=== PATIENT | female | born 1960 | race Caucasian/White ===

== ENCOUNTER → 2016-09-03 | Day surgery (SDC) | payer OTHER ==
[~2016-09-03] MED LIST: CALCIUM + D SO1 EACH PO; DILANTIN PO; GNP ONE DAILY1 EAC4 PO; HAIR, SKIN & N1 EACH PO; VIT E PO; XYZAL5 MG PO
--- NOTE | ~2016-09-03 | OR ---
Unit #: [id number] #: [id number] Patient: PONCE REGAN [id number] [address] [place], [place] [address] [id number] MR#: [id number] NAME: PONCE REGAN ROOM: Date of Procedure: 09/03/2016 Admission Date: 09/03/2016 Surgeon: Abner Mcdonnell M.D. : 1960 Attending Physician: Abner Mcdonnell M.D. Primary Care Physician: Connor Newsome M.D. OPERATIVE REPORT PREOPERATIVE DIAGNOSIS Colorectal cancer screening in an average-risk patient. PROCEDURE PERFORMED Colonoscopy up to cecum and terminal ileum with excellent preparation and good visualization. POSTOPERATIVE DIAGNOSES Small internal hemorrhoids. Otherwise, normal examination up to cecum and terminal ileum. The quality of prep was excellent. No polyps or diverticula were noted. RECOMMENDATIONS Surveillance colonoscopy in future. SEDATION USED MAC. DESCRIPTION OF PROCEDURE Following detailed explanation of the potential risks and complications of a colonoscopy, namely perforation, bleeding, and complication related to sedation, the patient was brought to GI lab and laid in the left lateral decubitus position. A digital rectal examination was performed, which was normal. Lubricated tip of the Olympus video colonoscope was inserted through the anus and advanced under direct vision. The scope was advanced past rectosigmoid into descending colon. No diverticula were noted in this area. The scope tip was then navigated all the way up to cecum with visualization of the ileocecal valve and the appendiceal orifice. Preparation was excellent with good visualization and photodocumentation was obtained. Successive segments of the colonic mucosa were examined upon withdrawal and appeared unremarkable. There being no polyps, mass lesions, AVMs, or diverticula. The patient did have small internal hemorrhoids seen at the anal verge. The scope was then withdrawn and the patient returned to the recovery area. She tolerated the procedure without any postprocedure complications. Dictated by... Falguni Horne/narinder Unit #: [id number] #: [id number] Patient: PONCE REGAN TD: 09/03/2016 23:58 JOB #: [id number] OPERATIVE REPORT Page 1 of 1 X Abner Mcdonnell MD PROCEDURE OPERATIVE NOTE
== END | disposition home or self-care (01) ==
LOC: COPS 07:15
PROVIDERS: Internal Medicine Gastroenterology
PROC: 0DJD8ZZ Inspection of Lower Intestinal Tract, Via Natural or Artificial Opening Endoscopic (ICD-10-PCS; principal; 2016-09-03 09:00)
DX: Z12.11 Encounter for screening for malignant neoplasm of colon (principal); K64.8 Other hemorrhoids; Z79.899 Other long term (current) drug therapy; G40.909 Epilepsy, unspecified, not intractable, without status epilepticus; Z98.890 Other specified postprocedural states
CPT/HCPCS: J2250